=== PATIENT | female | born 1965 | race Caucasian/White ===

== ENCOUNTER 2025-07-17 16:04 | Emergency (ER) | payer OTHER, SELFPAY ==
--- NOTE | ~2025-07-17 | CT_ITS ---
CLINICAL HISTORY: trauma, fell then lower back pain Exam: Nonenhanced CT abdomen and pelvis with multiplanar reformats. Comparison: None. Findings: CT abdomen: Lung bases are clear. Liver appears grossly intact with no focal lesions or ductal dilatation. Gallbladder is unremarkable. Spleen is absent. Pancreas and adrenal glands appear unremarkable. Right kidney reveals a small subcentimeter hyperdensity (26; 290), and left renal upper pole subcentimeter hyperdensity (26; 153), likely small bilateral hyperdense or proteinaceous cysts. Kidneys otherwise unremarkable. No free intraperitoneal fluid or retroperitoneal masses or adenopathy. Abdominal aorta is normal caliber with mild calcific athero sclerosis. Bowel loops reveal colonic diverticulosis, without CT evidence of diverticulitis. The appendix is not identified, however there is no secondary CT evidence of appendicitis. No abnormal bowel wall thickening or distention. CT pelvis: Uterus appears to be surgically absent. Urinary bladder is free of gross filling defects. No pelvic masses, fluid or adenopathy. Osseous structures reveal no destructive osseous lesions. No fractures or traumatic malalignment. Lumbar degenerative changes are present, most significant at L5-S1 level. Impression: 1. No acute traumatic sequela to the abdomen or pelvis. This document has been electronically signed by: Delfino Sethi MD on 07/17/2025 17:46:26
--- NOTE | ~2025-07-17 | CT_ITS ---
CLINICAL HISTORY: head injury CT head without contrast Comparison: None Findings: No intracranial mass, midline shift, hydrocephalus, or acute hemorrhage. No CT evidence of acute ischemia. Visualized paranasal sinuses and mastoid air cells reveal sequela of prior right-sided wall up mastoidectomy. A small right maxillary sinus retention cyst is present.. Orbits unremarkable. No skull fracture Impression: 1. No acute intracranial abnormalities. This document has been electronically signed by: Delfino Sethi MD on 07/17/2025 17:47:22
--- NOTE | ~2025-07-17 | CT_ITS ---
CLINICAL HISTORY: neck pain CT cervical spine without contrast Comparison: None Findings: Normal limited view of the intracranial contents. Soft tissues of the neck are normal. Lung apices are normal. Normal vertebral body alignment. No fractures or dislocations. Cervical degenerative changes are present, more significant C5-7.. Impression: 1. No cervical vertebral fracture or traumatic malalignment. This document has been electronically signed by: Delfino Sethi MD on 07/17/2025 17:46:29
--- NOTE | ~2025-07-17 | XR_ITS ---
CLINICAL HISTORY: cp 1 view chest x-ray. Comparison: None Findings: No consolidation or effusion. Skin fold artifact overlies left upper diana thorax. Cardiac and mediastinal contours appear unremarkable. Bones unremarkable. Impression: 1. No acute pulmonary disease. This document has been electronically signed by: Delfino Sethi MD on 07/17/2025 17:16:23
[2025-07-17 16:10] VITALS: BP 128/92; BP 141/73; PULSE 66; PULSE 74; RESP 16; TEMP 36.9; O2SAT 97; BMI 22.4
--- NOTE | 2025-07-17 16:20 | ECG_ITS ---
Test Reason : FALL Blood Pressure : */* mmHG Vent. Rate : 72 BPM Atrial Rate : 72 BPM P-R Int : 186 ms QRS Dur : 92 ms QT Int : 418 ms P-R-T Axes : 56 2 46 degrees QTcB Int : 457 ms Normal sinus rhythm Possible Left atrial enlargement Septal infarct , age undetermined Abnormal ECG No previous ECGs available Referred By: Elsie Haider Electronically Signed By: Amos Ambrosio
--- NOTE | 2025-07-17 16:21 | ED_ITS ---
HPI - Fall General Chief Complaint: Fall Stated Complaint: Fall, + head strike, -thinners, +collar, back pain Time Seen by Provider: 07/17/25 16:11 History of Present Illness HPI Narrative: Patient is a 59-year-old female status post accidental fall she was walking after drinking some alcohol. Then was walking down the stairs carrying stuff. Slipped and fell hit the back of her head. Also complaining of lower back pain. Patient denies any loss of consciousness. Currently not on blood thinners. She is from home. No nausea no vomiting no bowel urinary incontinence. No focal weakness. Related Data Allergies Allergy/AdvReac Type Severity Reaction Status Date / Time lisinopril Allergy Cough Verified 07/17/25 16:12 sulfamethoxazole (From Allergy Hives Verified 07/17/25 16:12 Bactrim) trimethoprim (From Bactrim) Allergy Hives Verified 07/17/25 16:12 Review of Systems 2 Review of Systems: Positive head injury Yes all other systems are reviewed and are negative [facility] Past Medical History Attestation statement: The following information was validated with the patient. Social History Social History Advance Directives: No Advance Directives Information Provided: No Physical Exam 2 Exam: Exam: Appearance: Alert. Oriented X3. No acute distress. Eyes: Pupils equal, round and reactive to light. ENT: Pharynx normal. Neck: Normal inspection. No C-spine tenderness. No step-off. Positive distracting injury. No lymph nodes noted. No crepitus CVS: Normal heart rate and rhythm. Pulses normal. Normal S1 and S2 Respiratory: No chest wall tenderness no crepitus. Abdomen: Soft and nontender. No rigidity. No distention. good BS x4 Skin: Skin warm and dry. Normal skin color. Normal skin turgor. Extremities: No lower extremity edema. Neurovascular intact to all extremities. No Lacerations. No Rash Neuro: Oriented X 3. No motor deficit. No sensory deficit. Moving all extermities. No slurred speech Vital Signs: Vital Signs: Last Vital Signs Temp 98.5 F 07/17/25 16:10 Pulse 66 07/17/25 16:10 Resp 16 07/17/25 16:10 BP 141/73 H 07/17/25 16:10 Pulse Ox 97 11/08/25 16:10 O2 Del Method Room Air 07/17/25 16:10 BMI result Body Mass Index 22.4 Medical Decision Making Medical Decision Making [facility] Narrative: Status post accidental fall. CT scan of the head was grossly negative by my interpretation. CT scan of C-spine CT scan of the abdomen pelvis per radiology's are negative. No traumatic injury no fracture. Patient's alcohol came back at approximately 250. Electrolytes are unremarkable. Currently in stable condition. Hemoglobin is 12.1 no signs of anemia currently awaiting clinical sobriety. Differential Diagnosis Differential Diagnoses: The differential diagnosis associated with the presentation includes Accidental fall head injury fracture ETOH Admission/Observation Consideration of admission/observation: Escalation of care including admission/observation considered Lab Data [facility] Lab Attestation statement: I reviewed the patient's lab results. 07/17/25 17:03 07/17/25 17:03 Labs: Lab Results 07/17/25 Range/Units 17:03 WBC 12.8 H (4.8-10.8) X10*3/uL RBC 3.79 L (4.20-5.50) X10*6/uL Hgb 12.1 (12.0-16.0) g/dl Hct 36.6 L (37.0-47.0) % MCV 96.6 (80.0-98.0) fL MCH 31.9 (27.0-33.0) pg MCHC 33.1 (31.0-35.0) g/dl RDW 14.6 (11.0-16.0) % Plt Count 343 (160-400) X10*3/uL MPV 9.9 (9.4-12.3) fL Immature Gran % (Auto) 2.0 H (0.0-0.4) % Neut % (Auto) 58.6 (45-73) % Lymph % (Auto) 27.8 (20-40) % Logan % (Auto) 8.4 (2-11) % Eos % (Auto) 2.3 (0-4) % Baso % (Auto) 0.9 (0-2) % Lymph # (Auto) 3.6 (1.2-4.9) X10*3/uL Logan # (Auto) 1.1 (0.1-1.2) X10*3/uL Eos # (Auto) 0.3 (0.0-0.4) X10*3/uL Baso # (Auto) 0.1 (0.0-0.2) X10*3/uL Abs Immat Gran (auto) 0.25 H (0.00-0.03) X10*3/uL Absolute Neuts (auto) 7.5 (2.0-8.3) x10*3/uL Absolute Nucleated RBC 0.000 (0.0-0.012) X10*3/uL Nucleated RBC % (auto) 0.0 (0.0-0.2) /100WBC Sodium 139 (135-145) mmol/L Potassium 4.0 (3.3-5.1) mmol/L Chloride 109 H (96-108) mmol/L Carbon Dioxide 20 L (22-29) mmol/L Anion Gap 14 (12-20) BUN 24 H (9-16) mg/dL Creatinine 0.77 (0.5-1.4) mg/dL Estim Creat Clear Calc 75.5 Estimated GFR > 60 Random Glucose 95 (60-115) mg/dL Calcium 9.0 (8.4-10.2) mg/dL Total Bilirubin 0.1 (0.0-1.0) mg/dL Direct Bilirubin < 0.2 (0.0-0.5) mg/dL AST 28 (5-31) U/L ALT 20 (0-31) U/L Alkaline Phosphatase 63 (39-117) U/L Total Protein 7.3 (6.5-8.0) g/dL Albumin 4.3 (3.5-5.0) g/dL Lipase 78 (8-78) U/L Ethyl Alcohol 250 mg/dL Independent Interpretation I performed an independent interpretation of an: CT Scan (CT head negative) Radiology Impression Discussion of test interpretation with radiology: I have reviewed the radiologist's reading. Social Determinants Patient?s care significantly limited by Social Determinants of Health including: Alcoholism and drug addiction in family and Problems related to primary support group Discharge Plan Discharge Clinical Impression: Head injury, Alcohol intoxication Patient Disposition: Home, Self-Care Instructions: Head Injury (DC), Abuse of Alcohol (DC) Referrals: Kate Santiago NP [Primary Care Provider, Internal Medicine] - 07/20/25 Print Language: Nepalese
[2025-07-17 17:11] LABS: MANUAL DIFF FLAG NO
[2025-07-17 17:13] LABS: Hematocrit 36.6 % (37.0-47.0); Hemoglobin 12.1 g/dl (12.0-16.0); Imm Gran Abs Auto 0.25 X10*3/uL (0.00-0.03); Imm Gran Pct Auto 2.0 % (0.0-0.4); Lymphocytes Absolute Auto 3.6 X10*3/uL (1.2-4.9); Mean Corpuscular HGB Conc 33.1 g/dl (31.0-35.0); Mean Corpuscular Hemoglobin 31.9 pg (27.0-33.0); Mean Corpuscular Volume 96.6 fL (80.0-98.0); NRBC Abs Auto 0.000 X10*3/uL (0.0-0.012); NRBC Pct Auto 0.0 /100WBC (0.0-0.2); Platelet Count 343 X10*3/uL (160-400); Red Blood Count 3.79 X10*6/uL (4.20-5.50); White Blood Count 12.8 X10*3/uL (4.8-10.8)
--- OUTSIDE RECORDS SUMMARY | 2025-07-17 17:24 | XMS_ITS | Clinical Summary ---
Author Organization [facility] Address [address] [place] [address] Care Team Providers Care Client Service Administrator Name Role Phone Unavailable Primary Care Provider Unavailabl e Social History Tobacco Use Types Packs/Day Years Used Date Smoking Tobacco: Never Assessed Sex and Gender Information Value Date Recorded Sex Assigned at Not on file Gender Identity Not on file Sexual Orientation Not on file Plan of Treatment Health Maintenance Due Date Last Done Comments Hepatitis C Screening 1964 Depression Screening 1976 Preventative Health Evaluation 1982 DTap / Tdap / Td (1 - Tdap) 1983 Cervical Cancer Screening (Pap Smear) 1985 Colon Cancer Screening (Colonoscopy) 2009 Breast Cancer Screening (Mammogram) 2014 Shingrix-Zoster Vaccine (1 of 2) 2014 COVID-19 Vaccine ( season) 2025 12/15/2021, 07/05/2021, 11/03/2020, Additional history exists Influenza Vaccine (#1) 2025 07/09/2019, 2017 RSV Adult > 60+ Yrs or (1 - 1-dose 75+ series) 2039 Hepatitis B Vaccines Aged Out No long er eligible based on patient's age to complete this topic Pneumococcal Vaccine Aged Out No long er eligible based on patient's age to complete this topic RSV Ped < 20 months Aged Out No longe r eligible based on patient's age to complete this topic
[2025-07-17 17:29] LABS: Alanine Aminotransferase 20 U/L (0-31); Albumin Level 4.3 g/dL (3.5-5.0); Alkaline Phosphatase 63 U/L (39-117); Anion Gap 14 (12-20); Aspartate Amino Transferase 28 U/L (5-31); Blood Urea Nitrogen 24 mg/dL (9-16); Calcium 9.0 mg/dL (8.4-10.2); Carbon Dioxide 20 mmol/L (22-29); Chloride 109 mmol/L (96-108); Creatinine Clr Calc Pharmacy 75.5; Estimated Glomerular Filt Rate > 60; Lipase 78 U/L (8-78); Potassium 4.0 mmol/L (3.3-5.1); Sodium 139 mmol/L (135-145); Total Protein 7.3 g/dL (6.5-8.0)
[2025-07-17 18:40] VITALS: BP 116/64; PULSE 69; RESP 18; TEMP 36.8; O2SAT 97
[2025-07-17 19:43] VITALS: BP 118/53; PULSE 77; RESP 18; TEMP 36.8; O2SAT 97
--- NOTE | 2025-07-17 19:53 | PC.NURSE ---
patient requested to be d/c. agreeable to this. patient has friend coming to pick her up. denies any pain/concerns at this time. axox4.
[2025-07-17 19:58] VITALS: BP 118/53; PULSE 77; RESP 18; TEMP 36.8; O2SAT 97
== END 2025-07-17 19:59 | disposition home or self-care (01) ==
PROVIDERS: Emergency Provider Emergency Medicine Emergency Medical Services; PCP Nurse Practitioner Family
DX: S09.90XA Unspecified injury of head, initial encounter (principal); R51.9 Headache, unspecified; F10.129 Alcohol abuse with intoxication, unspecified; M54.50 Low back pain, unspecified; R94.31 Abnormal electrocardiogram [ECG] [EKG]; M54.2 Cervicalgia; Y90.8 Blood alcohol level of 240 mg/100 ml or more; W10.9XXA Fall (on) (from) unspecified stairs and steps, initial encounter; Y93.9 Activity, unspecified; Y92.9 Unspecified place or not applicable; Y99.8 Other external cause status; Z51.81 Encounter for therapeutic drug level monitoring
CPT/HCPCS: 36415; 70450; 71045; 72125; 74176; 80048; 80076; 80307; 83690; 85025; 93005; 99284; 99285

== ENCOUNTER → 2025-07-17 16:18 | Outpatient (BNV) | payer OTHER, SELFPAY | PROVIDERS: Emergency Provider Emergency Medicine Emergency Medical Services; PCP Nurse Practitioner Family; Visit Provider Radiology Diagnostic Radiology | DX: M54.50 Low back pain, unspecified (principal); Z04.3 Encounter for examination and observation following other accident; M54.2 Cervicalgia; S09.90XA Unspecified injury of head, initial encounter; R07.9 Chest pain, unspecified | CPT/HCPCS: 70450; 71045; 72125; 74176 ==

== ENCOUNTER → 2025-07-17 16:20 | Outpatient (BNV) | payer OTHER, SELFPAY | PROVIDERS: Emergency Provider Emergency Medicine Emergency Medical Services; PCP Nurse Practitioner Family; Visit Provider Internal Medicine Cardiovascular Disease | DX: R94.31 Abnormal electrocardiogram [ECG] [EKG] (principal); Z04.3 Encounter for examination and observation following other accident | CPT/HCPCS: 93010 ==